=== PATIENT | male | born 1965 | race African-American/Black ===

== ENCOUNTER 2016-08-25 13:56 | Emergency (ER) | payer OTHER ==
[2016-08-25] MEDS ORDERED: ORPHENADRINE 60 MG/2 ML AMP ONE (14:40)
[2016-08-25] MEDS ORDERED: KETOROLAC 60 MG/2 ML VIAL IM ONE (14:40)
== END 2016-08-25 15:42 | disposition home or self-care (01) ==
LOC: FASTR 13:56
DX: M54.5 Low back pain (principal); G89.29 Other chronic pain
CPT/HCPCS: 96372